=== PATIENT | female | born 1930 | race Caucasian/White ===

== ENCOUNTER 2019-07-12 19:55 | Emergency (ER) | payer MEDICARE ==
--- NOTE | 2019-07-12 20:51 | CT ---
CT OF BRAIN PERFORMED WITHOUT CONTRAST ENHANCEMENT: 07/12/19 HISTORY: Patient status post fall with head injury. The ventricular and cisternal system is within normal limits for age. There are no signs of intracere bral hemorrhage or extra-axial fluid collections. Mastoid air cells and visualized sinuses are clear. IMPRESSION: No acute intracranial abnormalities. POS: [facility]
--- NOTE | 2019-07-12 20:55 | CT ---
CT OF CERVICAL SPINE PERFORMED WITHOUT CONTRAST ENHANCEMENT: 07/12/19 HISTORY: Fall with neck pain. Bones show some patchy areas of demineralization but no definite discrete lytic bony process. 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 Moderate disc narrowing is seen at C6-7. There are mod erate degenerative facet changes noted; however, the facets are in normal alignment. There is moderat e left foraminal narrowing at C3-4 and C4-5. The canal shows a mild to moderate degree of stenosis wi th some posterior osteophytic change at C5-6 and moderate left and mild right foraminal narrowing. Th ere is no CT evidence for fracture. The lung apices show some calcified pleural plaques. IMPRESSION: No CT evidence of fracture of the cervical spine. 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 POS: [facility]
--- NOTE | 2019-07-12 20:58 | CT ---
CT OF FACIAL BONES PERFORMED WITHOUT CONTRAST ENHANCEMENT: 07/12/19 HISTORY: Fall with facial trauma. There is a nasal bone fracture present, minimally displaced. The zygomatic arches and pterygoid proc esses are intact. No air fluid level seen within the sinuses. No signs of any maxillary or orbital fr acture. Mandible is intact. The condyle are in normal position. IMPRESSION: Nasal bone fracture. POS: [facility]
== END 2019-07-12 22:03 | disposition left against medical advice (07) ==
LOC: ERS 19:55
DX: S02.2XXA Fracture of nasal bones, initial encounter for closed fracture (principal); E03.9 Hypothyroidism, unspecified; Z87.891 Personal history of nicotine dependence; Z79.899 Other long term (current) drug therapy; W01.0XXA Fall on same level from slipping, tripping and stumbling without subsequent striking against object, initial encounter
CPT/HCPCS: 70450; 70486; 72125